=== PATIENT | female | born 1995 | race Caucasian/White ===

== ENCOUNTER 2016-12-27 09:10 | Outpatient (RCR) | payer OTHER | END 2017-03-27 | disposition home or self-care (01) | LOC: MKS.ESL.PT | DX: S46.812A Strain of other muscles, fascia and tendons at shoulder and upper arm level, left arm, initial encounter (principal); X58.XXXA Exposure to other specified factors, initial encounter ==

== ENCOUNTER 2017-08-11 15:29 | Outpatient (CLI) | payer OTHER ==
[~2017-08-11] VITALS: Ht 160 cm; Wt 80.5 kg
[2017-08-11] MEDS ORDERED: PRENATAL1 TA7 PO (16:04)
[2017-08-11 16:05] VITALS: BP 121/69; PULSE 96; TEMP 98
[2017-08-11] MEDS ORDERED: AMOXICILLIN 50500 MG PO (16:05)
== END 2017-08-11 16:35 | disposition home or self-care (01) ==
LOC: LDRO 15:29
DX: Z34.83 Encounter for supervision of other normal pregnancy, third trimester (principal); Z3A.30 30 weeks gestation of pregnancy

== ENCOUNTER 2017-09-19 18:54 | Outpatient (CLI) | payer OTHER ==
[~2017-09-19] VITALS: Ht 160 cm; Wt 85.0 kg
[~2017-09-19 18:54] MED LIST: AMOXICILLIN 50500 MG PO; PRENATAL1 TA7 PO
[2017-09-19] MEDS ORDERED: TUMS500 MG (19:12)
[2017-09-19 19:13] VITALS: BP 132/74; PULSE 106; TEMP 98.3
== END 2017-09-19 20:50 | disposition home or self-care (01) ==
LOC: LDRO 18:54
DX: O62.9 Abnormality of forces of labor, unspecified (principal); Z3A.36 36 weeks gestation of pregnancy

== ENCOUNTER 2017-09-24 13:18 | Outpatient (CLI) | payer MEDICAID ==
[~2017-09-24] VITALS: Ht 160 cm; Wt 87.3 kg
[~2017-09-24 13:18] MED LIST changes: +TUMS500 MG
[2017-09-24 13:26] VITALS: BP 124/68; PULSE 88; TEMP 97.3
[2017-09-24 14:20] VITALS: BP 117/64; PULSE 84
== END 2017-09-24 14:25 | disposition home or self-care (01) ==
LOC: LDRO 13:18
DX: O36.8130 Decreased fetal movements, third trimester, not applicable or unspecified (principal); Z3A.36 36 weeks gestation of pregnancy

== ENCOUNTER 2017-10-11 07:01 | Inpatient (IN) | payer MEDICAID ==
[~2017-10-11] VITALS: Ht 160 cm; Wt 88.2 kg
[2017-10-11] VITALS (19 sets, daily range): BP systolic 110–129; BP diastolic 60–80; PULSE 72–102; TEMP 98.2–98.5
[2017-10-11 20:28] LABS: BASO % 0.3 % (0.0-2.0); EOS % 0.4 % (0-4.0); GRAN # 5.9 (1.4-6.5); LYMPH # 2.5 (1.2-3.4); LYMPH % 27.2 % (20.0-51.0); MEAN CELL VOLUME 85 fl (80.0-100.0); MEAN CORPUSCULAR HGB CONC 34 g/dl (33.0-37.0); MEAN PLATELET VOLUME 12.7 fl (7.4-10.4); MONO # 0.7 (0.1-0.6); MONO % 7.2 % (1.7-9.3); PLATELET COUNT 225 K/mm3 (130-400); RED BLOOD COUNT 3.98 M/mm3 (4.10-5.30); WHITE BLOOD COUNT 9.3 K/mm3 (4.8-10.8)
[2017-10-11 20:29] LABS: HEMATOCRIT 33.8 % (37.0-47.0); HEMOGLOBIN 11.5 g/dl (12.5-16.0); MEAN CORPUSCULAR HEMOGLOBIN 29 pg (27.0-31.0)
[2017-10-12] VITALS (80 sets, daily range): BP systolic 101–140; BP diastolic 52–82; PULSE 68–109; TEMP 97.7–99.5
[2017-10-13 07:23] LABS: HEMOGLOBIN 9.4 g/dl (12.5-16.0)
[2017-10-13 08:00] VITALS: BP 99/49; PULSE 79; TEMP 98.1
[2017-10-13 16:14] VITALS: BP 120/67; PULSE 84; TEMP 98.2
[2017-10-13 19:00] VITALS: BP 125/65; PULSE 95; TEMP 97.9
[2017-10-14 07:50] VITALS: BP 124/69; PULSE 84; TEMP 98.1
[2017-10-14] MEDS ORDERED: IBU600 MG PO (09:07)
[2017-10-14] MEDS ORDERED: PERCOCET 325 MG1 TA2 PO (09:07)
== END 2017-10-14 13:15 | disposition home or self-care (01) | DRG 775 ==
LOC: LDR 07:01 → OB 10-12 20:35
PROVIDERS: Obstetrics & Gynecology
PROC: 10E0XZZ Delivery of Products of Conception, External Approach (ICD-10-PCS; principal; 2017-10-12)
PROC: 0KQM0ZZ Repair Perineum Muscle, Open Approach (ICD-10-PCS; 2017-10-12)
DX: O13.4 Gestational [pregnancy-induced] hypertension without significant proteinuria, complicating childbirth (principal); O36.0130 Maternal care for anti-D [Rh] antibodies, third trimester, not applicable or unspecified; O76 Abnormality in fetal heart rate and rhythm complicating labor and delivery; O70.1 Second degree perineal laceration during delivery; Z3A.39 39 weeks gestation of pregnancy; Z37.0 Single live birth
CPT/HCPCS: J2590; J2791; J7120

== ENCOUNTER 2017-11-11 11:32 | Day surgery (SDC) | payer MEDICAID ==
[~2017-11-11] VITALS: Ht 157.5 cm; Wt 75.0 kg
[~2017-11-11 11:32] MED LIST changes: +IBU600 MG PO; +PERCOCET 325 MG1 TA2 PO
[2017-11-11] MEDS ORDERED: TYLENOL 325MG325 MG PO (12:00)
[2017-11-11 12:08] VITALS: BP 121/66; PULSE 79; TEMP 98
[2017-11-11 15:45] VITALS: BP 118/58; PULSE 70; TEMP 97.2
[2017-11-11 15:59] VITALS: TEMP 97.7
[2017-11-11 16:00] VITALS: BP 115/64; PULSE 79
== END 2017-11-11 16:34 | disposition home or self-care (01) ==
LOC: SDCO 11:32
DX: S82.62XA Displaced fracture of lateral malleolus of left fibula, initial encounter for closed fracture (principal); Z68.30 Body mass index [BMI] 30.0-30.9, adult; Z88.8 Allergy status to other drugs, medicaments and biological substances; Z87.891 Personal history of nicotine dependence; Z80.9 Family history of malignant neoplasm, unspecified
CPT/HCPCS: C1713; C1776; J0690; J1100; J2250; J2405; J2704; J2795; J3010; J7120

== ENCOUNTER 2019-02-18 15:04 | Inpatient (IN) | payer MEDICAID ==
[2019-02-18] VITALS (29 sets, daily range): BP systolic 112–134; BP diastolic 56–76; PULSE 83–113; TEMP 98.3–98.9
[~2019-02-18] VITALS: Ht 160 cm; Wt 95.5 kg
[~2019-02-18 15:04] MED LIST changes: +TYLENOL 325MG325 MG PO
--- NOTE | 2019-02-18 15:15 | NUR ---
1515-G3L1 39.[address] JONES AMBULATORY TO LR 5 WITH COMPLAINTS OF CONTRACTIONS EVERY 10 MIN LASTING 2 MIN SINCE 1300, ALSO CONCERNED WITH POSSIBLE SROM SINCE LAST EVENING UNSURE OF TIME. ASSISTED INTO GOWN AND PLACED ON EFM. VSS, SEE FLOW RECORD. AMNITEST NEG SVE /-2, NO FLUID NOTED. ASSESSMENT COMPLETE. UPDATED ON PLAN OF CARE.
[2019-02-18] MEDS ORDERED: PRENATAL (15:34)
[2019-02-18 17:16] LABS: BASO % 0.4 % (0.0-2.0); EOS # 0.1 (0.0-0.7); EOS % 0.7 % (0-4.0); GRAN # 7.6 (1.4-6.5); GRAN % 67.1 % (42.2-75.2); HEMOGLOBIN 11.2 g/dl (12.5-16.0); LYMPH # 2.7 (1.2-3.4); LYMPH % 23.3 % (20.0-51.0); MEAN CELL VOLUME 84 fl (80.0-100.0); MEAN CORPUSCULAR HEMOGLOBIN 28 pg (27.0-31.0); MEAN CORPUSCULAR HGB CONC 33 g/dl (33.0-37.0); MEAN PLATELET VOLUME 11.8 fl (7.4-10.4); MONO # 0.8 (0.1-0.6); MONO % 7.4 % (1.7-9.3); PLATELET COUNT 233 K/mm3 (130-400); RED BLOOD COUNT 4.01 M/mm3 (4.10-5.30); REDCELL DISTRIBUTION WIDTH-CV 13.9 % (11.5-14.5)
[2019-02-18 17:20] LABS: HEMATOCRIT 33.6 % (37.0-47.0)
--- NOTE | 2019-02-18 18:20 | NUR ---
182- Bedside shift report received at this time by Imelda Cavanaugh RN. Care assumed at this time. Patient up to date with plan of care discussed by Dr. Mello. IV site has no redness or pain. IV line traced, pitocin rate at 6mU. Patient's questions answered. Patient denies any needs at this time. Call light, and belongings close to patient, full cup of ice chips on bedside table as well.
--- NOTE | 2019-02-18 18:45 | NUR ---
1844- Bedside ultrasound performed by Dr. Mello. Vertex presentation confirmed per Dr. Mello. AROM- clear fluid, SVE /-2.
--- NOTE | 2019-02-18 19:26 | NUR ---
1625-SVE 3-4/50/-3, PATIENT REMAINS UNCOMFORTABLE THROUGH CONTRACTIONS. 1628- UPDATED ON SVE, ORDERS TO AMBULATE PATIENT IN HALLS X 1HR. AND RECHECK CERVIX. 163-PATIENT OFF EFM AND UP TO AMBULATE. 163-DR. COVARRUBIAS CALLS UNIT BACK TO ASK IF PATIENT WOULD LIKE TO STAY AND PROCEED WITH INDUCTION TONIGHT, PATIENT WAS SCHEDULED THIS WEEK ON TUE FOR INDUCTION. PATIENT AGREES. GIVES ORDERS TO ADMIT PATIENT AND FOLLOW PITOCIN INDUCTION PROTOCOL. MD PLANS TO COME TO UNIT TO AROM THIS EVENING. 1700-IV TO RIGHT HAND PER DENNISE ROSENBERG LABS OBTAINED AND LR INFUSING. CONSENTS REVIEWED AND SIGNED. UPDATED ON INDUCTION PLAN OF CARE. 1720-PITOCIN STARTED PER PROTOCOL AT 2MU/MIN 1805-YAMILETH OCHOA ON PATIENTS STRIP, NO NEW ORDERS.
--- NOTE | 2019-02-18 20:45 | NUR ---
204- Single shot at this time per Angelique Ospina CRNA.
[2019-02-19] VITALS (9 sets, daily range): BP systolic 106–141; BP diastolic 57–78; PULSE 74–100; TEMP 97.2–99
--- NOTE | 2019-02-19 00:30 | NUR ---
0020- Patient called out feeling pressure and urge to push, Patient complete at this time, patient placed in stirrups, instructed on pushing, minimal movement with initial push.
--- NOTE | 2019-02-19 00:42 | NUR ---
0020- Patient complete dialation and feeling intense vaginal pressure and urge to push. Patient initial push at this time. 0029- Dr. Mello called for delivery at this time, station of baby +2. 0038- heartones in the 60's at this time, patient breathing through contraction, . 0042- DENNISE Villeda attended spontaneous vaginal delivery of viable female at this time. Nuchal x1 reduced, no shoulder dystocia, delivered at 0042. 0044- Dr. Mello at bedside at this time. 0047- No laceration noted per Dr. Mello, spontaneous delivery of intact placenta by this RN, pitocin infusing rapidly at this time. apgars 4,9,9 per DENNISE Watkins. EBL 300cc per Dr. Mello. Fundus firm, at umbilicus, scant bleeding.
--- NOTE | 2019-02-19 11:42 | NUR ---
Initial visit; Mom and Grandma thanked E Business Specialist for offering congratulaions and God's blessings for the of their little girl. E Business Specialist thanked family for choosing [facility].
[2019-02-20] MEDS ORDERED: IBU600 MG PO (08:00)
[2019-02-20] MEDS ORDERED: PERCOCET 325 MG1 TA2 PO (08:01)
[2019-02-20 08:02] LABS: HEMATOCRIT 30.8 % (37.0-47.0); HEMOGLOBIN 9.9 g/dl (12.5-16.0)
[2019-02-20 08:09] VITALS: BP 114/78; PULSE 74; TEMP 97.8
== END 2019-02-20 10:43 | disposition home or self-care (01) | DRG 807 ==
LOC: LDRO 15:04 → OB 16:00 → LDR 16:00 → OB 02-19 02:30
PROVIDERS: ADMIT Obstetrics & Gynecology
PROC: 10E0XZZ Delivery of Products of Conception, External Approach (ICD-10-PCS; principal; 2019-02-19)
PROC: 3E033VJ Introduction of Other Hormone into Peripheral Vein, Percutaneous Approach (ICD-10-PCS; 2019-02-19)
PROC: 10907ZC Drainage of Amniotic Fluid, Therapeutic from Products of Conception, Via Natural or Artificial Opening (ICD-10-PCS; 2019-02-19)
DX: O69.81X0 Labor and delivery complicated by cord around neck, without compression, not applicable or unspecified (principal); Z37.0 Single live birth; Z3A.39 39 weeks gestation of pregnancy; O26.893 Other specified pregnancy related conditions, third trimester; Z67.31 Type AB blood, Rh negative; O99.344 Other mental disorders complicating childbirth; F41.8 Other specified anxiety disorders; F43.10 Post-traumatic stress disorder, unspecified; O99.214 Obesity complicating childbirth; J45.20 Mild intermittent asthma, uncomplicated; O75.89 Other specified complications of labor and delivery
CPT/HCPCS: J1200; J2590; J2791; J2795; J7120

== ENCOUNTER 2019-04-10 11:08 | Emergency (ER) | payer MEDICAID ==
[~2019-04-10] VITALS: Ht 160 cm; Wt 85.0 kg
[~2019-04-10 11:08] MED LIST changes: +PRENATAL
[2019-04-10 11:31] VITALS: BP 127/58; TEMP 97.8
[2019-04-10 12:23] LABS: BASO # 0.1 (0.0-0.2); BASO % 0.8 % (0.0-2.0); EOS # 0.1 (0.0-0.7); EOS % 1.5 % (0-4.0); GRAN # 3.8 (1.4-6.5); HEMATOCRIT 38.9 % (37.0-47.0); HEMOGLOBIN 12.6 g/dl (12.5-16.0); LYMPH # 2.8 (1.2-3.4); LYMPH % 38.7 % (20.0-51.0); MEAN CELL VOLUME 85 fl (80.0-100.0); MEAN CORPUSCULAR HEMOGLOBIN 28 pg (27.0-31.0); MEAN CORPUSCULAR HGB CONC 32 g/dl (33.0-37.0); MEAN PLATELET VOLUME 10.8 fl (7.4-10.4); MONO # 0.5 (0.1-0.6); MONO % 6.7 % (1.7-9.3); PLATELET COUNT 283 K/mm3 (130-400); RED BLOOD COUNT 4.59 M/mm3 (4.10-5.30); REDCELL DISTRIBUTION WIDTH-CV 13.5 % (11.5-14.5)
[2019-04-10 13:21] VITALS: PULSE 64
== END 2019-04-10 13:24 | disposition home or self-care (01) ==
LOC: COL.ER 11:08
PROVIDERS: Emergency Medicine
DX: N93.8 Other specified abnormal uterine and vaginal bleeding (principal)
CPT/HCPCS: J7030

== ENCOUNTER 2019-11-20 07:20 | Emergency (ER) | payer SELFPAY ==
[~2019-11-20] VITALS: Ht 160 cm; Wt 85.9 kg
[2019-11-20 07:34] VITALS: BP 139/82; TEMP 97.1
[2019-11-20] MEDS ORDERED: AMOXICILLIN 8751 TAB PO (08:52)
[2019-11-20] MEDS ORDERED: NORCO 325 MG-51 TAB PO (08:53)
[2019-11-20 09:15] VITALS: PULSE 84
== END 2019-11-20 09:15 | disposition home or self-care (01) ==
LOC: COL.ER 07:20
DX: K08.89 Other specified disorders of teeth and supporting structures (principal); F17.210 Nicotine dependence, cigarettes, uncomplicated

== ENCOUNTER 2020-09-24 23:41 | Outpatient (CLI) | payer MEDICAID ==
[~2020-09-24] VITALS: Ht 160 cm; Wt 104.1 kg
--- NOTE | 2020-09-24 21:00 | NUR ---
PT ARRIVED TO UNIT VIA WHEELCHAIR WITH SPOUSE WITH COMPLAINTS OF CONTRACTIONS. PT ORIENTED TO ROOM, CHANGED INTO GOWN. EFM X2 APPLIED, VS OBTAINED, SVE PERFORMED.
[2020-09-24 21:30] VITALS: BP 136/81; PULSE 115; TEMP 97.8
[2020-09-24 22:00] VITALS: BP 134/76; PULSE 106
[2020-09-24 22:30] VITALS: BP 129/88; PULSE 113
[2020-09-24 23:00] VITALS: BP 130/74; PULSE 104
[2020-09-24 23:30] VITALS: BP 131/77; PULSE 101
[~2020-09-24 23:41] MED LIST changes: +AMOXICILLIN 8751 TAB PO; +NORCO 325 MG-51 TAB PO
[2020-09-25 00:07] VITALS: BP 105/68; PULSE 113
--- NOTE | 2020-09-25 00:07 | NUR ---
0005- PT MAY DC HOME PER DR. WEISS 0007- MONITORING DC'D AT THIS TIME. DISCHARGE INSTRUCTIONS REVIEWED. QUESTIONS ENCOURAGED AND ANSWERED. PT CHANGING INTO STREET CLOTHES.
[2020-09-25] MEDS ORDERED: TYLENOL 500MG500 MG PO (00:17)
[2020-09-25] MEDS ORDERED: CLARITIN 1010 MG/TAB PO (00:17)
--- NOTE | 2020-09-25 00:25 | NUR ---
PT AND SPOUSE VERBALIZE UNDERSTANDING OF DISCHARGE INSTRUCTIONS. PT AND SPOUSE OFF THE UNIT AMBULATORY FOR HOME.
== END 2020-09-25 00:25 | disposition home or self-care (01) ==
LOC: LDRO 23:41
DX: O62.9 Abnormality of forces of labor, unspecified (principal); Z3A.38 38 weeks gestation of pregnancy

== ENCOUNTER 2020-09-25 15:03 | Outpatient (CLI) | payer MEDICAID ==
--- NOTE | 2020-09-25 14:55 | NUR ---
Patient ambulates to LR3 with spouse, changed into gown, FHR/TOCO monitors placed. Patient states she was here last night as a check and went home about midnight and SVE was 2. She has continued to contract. Denies any leaking of fluid/vaginal bleeding/decreased movement. Plan of care discussed and questions answered. 1505: SVE 2-3/50/-3 called and notified, see physician notification. 1607: SVE 2-3/50/-[address] Mello called and updated. Patient given the option to be discharged or stay for another hour. Patient requests to go home. 1615: Discharge instructions gone over and paper signed. 1625: Patient ambulates off unit with spouse.
[~2020-09-25 15:03] MED LIST changes: +CLARITIN 1010 MG/TAB PO; +TYLENOL 500MG500 MG PO
[2020-09-25 15:30] VITALS: BP 126/70; PULSE 134
[2020-09-25 16:13] VITALS: PULSE 106
== END 2020-09-25 16:25 | disposition home or self-care (01) ==
LOC: LDRO 15:03
DX: O62.9 Abnormality of forces of labor, unspecified (principal); Z3A.38 38 weeks gestation of pregnancy

== ENCOUNTER → 2020-09-26 | Outpatient (CLI) | payer SELFPAY | END | disposition still patient (30) | LOC: ZCOL.LAB | DX: Z20.828 Contact with and (suspected) exposure to other viral communicable diseases (principal) ==

== ENCOUNTER 2020-09-30 06:52 | Inpatient (IN) | payer MEDICAID ==
[~2020-09-30] VITALS: Ht 160 cm; Wt 104.1 kg
[2020-09-30] VITALS (36 sets, daily range): BP systolic 90–157; BP diastolic 50–78; PULSE 78–114; TEMP 98.1–98.8
--- NOTE | 2020-09-30 07:00 | NUR ---
Patient ambulatory to LR4 with spouse, changed into gown, FHR/TOCO monitors placed and explained. Patient states she had been satya last week and came in to be checked and was sent home and then the contractins went away tuesday. Patient denies any regular contractions/leaking of fluid/vaginal bleeding/decreased movement. Plan of care discussed. Assessment completed/consents signed/ packet given. 0725: IV started in left hand per Silvia RN, blood obtained and to lab, LR infusing. Patient updated on plan of care and induction and patient agrees with pitocin induction. 0752: Pitocin started at 2mU per protocol. 0910: Dr. Mello at bedside assessing patient and FHR strip. Sono done at this time and vertex position confirmed. 0914: SVE per physician /-3 and AROM at this time with clear fluid noted. Patient updated on plan of care and questions answered. Patient requests epidural and Georgette Sena OUTSOLE BEVELER notified. 1002: Patient sitting on edge of bed and Georgette Sena OUTSOLE BEVELER at bedside for placement of epidural. Difficulty tracing FHR due to maternal position. 1009: Single shot given and patient tolerates well. 1013: Patient repositioned and safety precautions gone over. 1110: Araya catheter placed and patient tolerates well. SVE-/-[address] Mello called and updated.
[2020-09-30 07:40] LABS: HEMOGLOBIN 10.5 g/dl (12.5-16.0); MEAN CELL VOLUME 82 fl (80.0-100.0); MEAN CORPUSCULAR HEMOGLOBIN 27 pg (27.0-31.0); MEAN CORPUSCULAR HGB CONC 33 g/dl (33.0-37.0); MEAN PLATELET VOLUME 12.3 fl (7.4-10.4); PLATELET COUNT 226 K/mm3 (130-400); REDCELL DISTRIBUTION WIDTH-CV 14.2 % (11.5-14.5)
[2020-09-30 07:42] LABS: HEMATOCRIT 32.1 % (37.0-47.0)
[2020-09-30 08:23] LABS: BAND 8 % (0-10); BASOPHIL 1 % (0-2); EOSINOPHIL 1 % (0-4); LYMPHOCYTE 37 % (20.0-51.0); MYELOCYTE 1 % (0-0); NEUTROPHILS 49 % (42.0-75.2)
[2020-09-30 08:25] LABS: PLATELET ESTIMATE NORMAL (NORMAL)
--- NOTE | 2020-09-30 12:05 | NUR ---
Dr. Mello at bedside to assess patient and FHR strip. SVE per physician and orders to increase pitocin. Patient updated on plan of care. Dr. Mello at nurses station reviewing FHR strip. 1315: Dr. Mello at bedside and SVE per physician . Patient repositioned. 1345: Patient states feeling more pressure. SVE-/-1 1415: Patient feeling more uncomfortable with contractions and Gael SECURITY INCIDENT RESPONSE ENGINEER notified. SVE-/0 and fajardo catheter removed at this time. 1425: Dr. Mello at nurses station and SVE-/0 and physician updated. Patient prepped for vaginal delivery. Bed taken apart and feet in stirrups. Pericare done. 1430: Patient begins to push with contractions per orders. 1448: Spontaneous vaginal delivery of viable male-head followed by body. Infant bulb syringed and to patients abdomen and NAlvaro RN assumes care of . Cord clamped by physician and cut by FOB. Cord blood obtained. 1453: Spontaneous delivery of placenta and pitocin bolus started at 333mU per protocol. Fundal massage done/firm/bleeding WNL. Pericare done, patient repositioned, ice pack to perineum. Plan of care discussed.
--- NOTE | 2020-09-30 16:30 | NUR ---
Patient sits on edge of bed, assisted into wheelchair and assisted onto toilet. Voids, pericare done, new gown/pad/underwear on. Patient assisted into wheelchair and to new room. Oriented to and plan of care discussed.
[2020-10-01 06:44] LABS: HEMATOCRIT 31.4 % (37.0-47.0); HEMOGLOBIN 10.1 g/dl (12.5-16.0)
[2020-10-01 07:30] VITALS: BP 126/68; PULSE 87; TEMP 97
[2020-10-01] MEDS ORDERED: IBU600 MG PO (08:56)
--- NOTE | 2020-10-01 10:07 | NUR ---
Initial visit; Parents thanked Channel Cementer for offering congratulations and God's blessings for the of their son. Channel Cementer thanked family for choosing [facility].
[2020-10-01 12:45] VITALS: BP 116/56; PULSE 84; TEMP 97.8
--- NOTE | 2020-10-01 16:50 | NUR ---
Discharge instructions reviewed with patient and family who verbalize understanding. Ambulatory off unit to private vehicle.
== END 2020-10-01 16:50 | disposition home or self-care (01) | DRG 807 ==
LOC: OB → LDR 06:52 → OB 06:52
PROVIDERS: ADMIT Obstetrics & Gynecology
PROC: 10E0XZZ Delivery of Products of Conception, External Approach (ICD-10-PCS; principal; 2020-09-30)
PROC: 10907ZC Drainage of Amniotic Fluid, Therapeutic from Products of Conception, Via Natural or Artificial Opening (ICD-10-PCS; 2020-09-30)
DX: O99.214 Obesity complicating childbirth (principal); Z37.0 Single live birth; E66.9 Obesity, unspecified; O99.52 Diseases of the respiratory system complicating childbirth; J45.20 Mild intermittent asthma, uncomplicated; O99.02 Anemia complicating childbirth; D64.9 Anemia, unspecified; O99.344 Other mental disorders complicating childbirth; F41.9 Anxiety disorder, unspecified; F32.9 Major depressive disorder, single episode, unspecified; F43.10 Post-traumatic stress disorder, unspecified; Z3A.39 39 weeks gestation of pregnancy
CPT/HCPCS: J2590; J2795; J7120